=== PATIENT | male | born 1960 | race American Indian/Alaskan Native ===

== ENCOUNTER 2019-07-22 12:18 | Emergency (ER) | payer MEDICAID ==
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
--- NOTE | 2019-07-22 13:14 | XRay Report ---
Right leg-4 views INDICATION: right leg pain. COMPARISON: None. IMPRESSION: No acute fracture identified. There is mild generalized swelling about the leg. 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 Signer Name: Silvino Pena MD Signed: 07/22/2019 1:10 PM Workstation Name: [id number]
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
[2019-07-22 14:05] VITALS: BP 124/70
== END 2019-07-22 13:52 | disposition home or self-care (01) ==
LOC: ED 12:18
DX: S80.11XA Contusion of right lower leg, initial encounter (principal); L03.115 Cellulitis of right lower limb; W22.8XXA Striking against or struck by other objects, initial encounter; Y93.89 Activity, other specified; Y92.89 Other specified places as the place of occurrence of the external cause; Y99.8 Other external cause status
CPT/HCPCS: 99283